=== PATIENT | male | born 1950 | race Caucasian/White ===

== ENCOUNTER 2018-02-13 15:06 | Emergency (ER) | payer MEDICARE, OTHER, SELFPAY ==
[2018-02-13 15:08] VITALS: BP 156/79; PULSE 79; PULSE 95; RESP 18; TEMP 36.4; O2SAT 95; O2SAT 97; BMI 34.3
--- NOTE | 2018-02-13 15:20 | ED.VISSUMM ---
- ER Visit Summary Date of Service: 02/13/18 Chief Complaint: Injury left thumb History of Present Illness: The patient is a 67 M who is right-hand dominant presents with injury to the distal volar radial side of the left thumb. He was using a nail gun. Apparently the wound was hard and the nail went off to the side causing injury to the left thumb. He denies paresthesia, anesthesia motor weeks. He denies problems with bleeding or bruising easily. He states he ran it under water for 5-10 minutes and then used surgical cleaning soap to clean the area. He is uncertain when his last tetanus shot was. Will contact his physician at [facility] to determine when his last shot was since he does not have access to his records through the Internet. Patient's last tetanus shot was April 28, 2015. Physical Examination: Vital signs are remarkable for slight elevation blood pressure 156/79. There is a 2 x 3 mm V-shaped laceration distal radial volar side of the left thumb. There is no subungual hematoma. Sensation and capillary refill are normal. He has full active range of motion. Test Results: None are indicated Emergency Department Course and Treatment: If patient's last tetanus shot was greater than 10 years will update otherwise clean wound Steri-Stripped and discharged home with appropriate home-going instructions Treatment Plan: Wound care and appropriate home-going instructions Disposition: Discharge to home with spouse Impression: Small laceration volar surface left thumb initial encounter This note was generated with [employer] dictation software. It may contain incorrect words, spelling, and punctuation that were not noted in review of the chart prior to signing ED Disposition - Plan for ED Patient: Disposition: Home or Assisted Living Chief Complaint: Wound Check Instructions: ED Laceration Small Superf No Sutr Referrals: Mark Shea MD [Primary Care Provider] - As Needed
--- NOTE | 2018-02-13 15:24 | ED.DCSUM_ITS ---
- ER Visit Summary Date of Service: 02/13/18 Chief Complaint: Injury left thumb History of Present Illness: The patient is a 67 M who is right-hand dominant presents with injury to the distal volar radial side of the left thumb. He was using a nail gun. Apparently the wound was hard and the nail went off to the side causing injury to the left thumb. He denies paresthesia, anesthesia motor weeks. He denies problems with bleeding or bruising easily. He states he ran it under water for 5-10 minutes and then used surgical cleaning soap to clean the area. He is uncertain when his last tetanus shot was. Will contact his physician at [facility] to determine when his last shot was since he does not have access to his records through the Internet. Patient's last tetanus shot was April 28, 2015. Physical Examination: Vital signs are remarkable for slight elevation blood pressure 156/79. There is a 2 x 3 mm V-shaped laceration distal radial volar side of the left thumb. There is no subungual hematoma. Sensation and capillary refill are normal. He has full active range of motion. Test Results: None are indicated Emergency Department Course and Treatment: If patient's last tetanus shot was greater than 10 years will update otherwise clean wound Steri-Stripped and discharged home with appropriate home-going instructions Treatment Plan: Wound care and appropriate home-going instructions Disposition: Discharge to home with spouse Impression: Small laceration volar surface left thumb initial encounter This note was generated with [employer] dictation software. It may contain incorrect words, spelling, and punctuation that were not noted in review of the chart prior to signing ED Disposition - Plan for ED Patient: Disposition: Home or Assisted Living Chief Complaint: Wound Check Instructions: ED Laceration Small Superf No Sutr Referrals: Mark Shea MD [Primary Care Provider] - As Needed
--- NOTE | 2018-02-13 15:31 | ED.RN ---
CALLED DR. THOMAS'S OFFICE, PATIENT LAST HAD TETANUS SHOT 04/28/15. INFORMATION RELAYED TO NURSE AND DR. SULLIVAN.
== END 2018-02-13 15:45 | disposition home or self-care (01) ==
PROVIDERS: Emergency Provider Emergency Medicine; Family Provider Family Medicine; PCP Family Medicine
DX: S61.012A Laceration without foreign body of left thumb without damage to nail, initial encounter (principal); W29.4XXA Contact with nail gun, initial encounter; Y93.89 Activity, other specified; Y92.9 Unspecified place or not applicable
CPT/HCPCS: 99282

== ENCOUNTER 2020-07-11 21:04 | Emergency (ER) | payer MEDICARE, OTHER, SELFPAY ==
[2020-07-11 21:05] VITALS: BP 152/71; PULSE 72; RESP 20; TEMP 36.1; O2SAT 99; BMI 34.0
--- NOTE | 2020-07-11 21:47 | CT_ITS ---
STUDY: CT BRAIN WITHOUT CONTRAST REASON FOR EXAM: Male, 69 years old. RAZA, N/V, WEAKNESS, DIZZINESS, HX HTN, CAD, STENTS RADIATION DOSAGE (If Supplied By Facility): CTDIvol = ( 44.99 ) mGy, DLP = ( 846.73 ) mGycm TECHNIQUE: Transaxial CT imaging of the brain was performed without administration of intravenous contrast material. Individualized dose optimization techniques were used for this CT. COMPARISON: No relevant priors. FINDINGS: Normal soft tissue structures. Normal calvarium. Normal size ventricles and extra-axial spaces for the patient''s age. Normal white matter tracts of the cerebral hemispheres. Normal basal ganglia and thalami. Normal brainstem. Normal cerebellum. There is no intracranial hemorrhage. There are no findings of an acute ischemic infarction. Normal visualized paranasal sinuses. CT/Brain/Head without Contrast IMPRESSION: Normal unenhanced CT scan of the brain. Electronically Signed: Corinne Vu MD at 22:51 EST Tel , Service support ,
[2020-07-11 22:23] LABS: Absolute Lymphocyte Count 0.84 X10^3/uL (0.83-4.51); Absolute Neutrophil Count 10.4 X10^3/uL (2.0-7.7); Basophil# 0.02 X10^3/uL; Basophil% 0.2 % (0-1); Eosinophil# 0.01 X10^3/uL; Eosinophils% 0.1 % (0-5); Hematocrit 42.4 % (40-54); Hemoglobin 13.7 g/dL (13.0-16.5); Lymphocyte # 0.84 X10^3/ul (4.0); Lymphocyte % 7.2 % (19-41); Mean Corp Hgb Conc 32.3 g/dL (32-36); Mean Corpuscular Hgb 29.7 pg (27.0-32.0); Mean Corpuscular Volume 91.8 fL (80-94); Mean Platelet Vol. 10.1 fl (6.2-12.0); Monocyte# 0.36 X10^3/uL; Monocyte% 3.1 % (0-10); NRBC Flagged by Analyzer 0 % (0-5); Neutrophil # 10.42 X10^3/uL (2.7-7.7); Neutrophil % 88.8 % (47-70); Platelet Count 204 K/mm3 (150-450); RBC Distribution Width CV 13.2 % (11.6-14.6); RBC Distribution Width SD 43.9 fl (35.1-43.9); Red Blood Count 4.62 M/mm3 (4.6-6.2); White Blood Count 11.7 K/mm3 (4.4-11.0)
[2020-07-11 22:25] LABS: Anion Gap 8 (5-15); BUN 14 mg/dL (7-18); Calcium,Total 9.1 mg/dL (8.5-10.1); Chloride 106 mmol/L (98-107); EST Glomerular Filtration Rate 79 mL/min (>60); Est Glom Filt Rate - Afr Amer 95 mL/min (>60); Glucose 140 mg/dL (74-106); Sodium Level 140 mmol/L (136-145)
[2020-07-11] MEDS: Acetaminophen 500 MG Tablet 1000 MG PO (22:34)
[2020-07-11] MEDS: DiphenhydrAMINE 50 MG/ML Syringe 25 MG IV (22:34)
[2020-07-11] MEDS: Ondansetron 4 MG/2 ML Vial IV (22:34)
[2020-07-11] MEDS: 0.9% Normal Saline 1,000 ML 999 ML IV (22:34)
--- NOTE | 2020-07-11 23:04 | ED.DCSUM_ITS ---
- ER Visit Summary Date of Service: 07/11/20 Chief Complaint: Headache History of Present Illness: 69-year-old male history of CAD with 2 cardiac stents, thoracic this and on Plavix and aspirin for stents. He states that today around 2:00 he got a gradual onset of frontal headache and headache with top of his head. Associated with nausea and he vomited 8 times. Denies any history of headaches. Denies any trauma. Has had no fever. He denies any numbness to his upper or lower extremities he denies any weakness or motor loss. is at home with him she has had no symptoms and no headache. Physical Examination: Older male no acute distress. Vital signs stable afebrile. Initial blood pressure 132/71. Pulse ox 90% on room air no signs hypoxia. No distress. HEENT exam unremarkable. Pupils round reactive light. Normal speech. No facial droop. Tongue midline. Moist mucous membranes. Extraocular motions intact. No trauma nose face or scalp. Neck nontender. No meningismus. No lymphadenopathy. He can easily flex and touch chin to chest. Lungs clear to auscultation bilaterally. Heart regular rhythm no murmur. Abdomen soft and nontender. Patient is moving all 4 extremities. Neurovascularly intact. Normal range of motion. Normal strength normal se nsation. Bilateral 5-5 imaging technologist strength. Dorsi plantarflexion intact. Neurologic exam normal. NIH is 0. Awake alert and oriented. Normal motor strength and sensation. Fingertip to nose within normal limits. Test Results: CAT scan of the brain without contrast showed no acute abnormality. Read by the radiologist and reviewed by me. CBC white count 11.7. Hemoglobin 13. No bands. Chemistries unremarkable normal creatinine and gap. Emergency Department Course and Treatment: She with a gradual onset of a headache today. This was not thunderclap. It does not appear to be meningitis. His exam is unremarkable. Obtain a CAT scan due to him being on Plavix. Screening labs. Patient's headache was treated with IV fluids, p.o. Tylenol, IV Benadryl and IV Zofran. Greatly improved his symptoms on repeat exam. Repeat exam patient is doing well at 11:30 PM. Headache is resolving and is now about a 3 out of 10. His neurologic exam remains normal. He is comfortable being discharged to home. Treatment Plan: Patient follow-up with his primary care physician. Return if worse. Disposition: dc Impression: Cute cephalgia uncertain etiology History of CAD with cardiac stents on Plavix This note was generated with [employer] [facility] dictation software. It may contain incorrect words, spelling, and punctuation that were not noted in review of the chart prior to signing ED Disposition - Plan for ED Patient: Disposition: Home or Assisted Living Referrals: Slade Juarez [Primary Care Provider] - 3-5 Days if not improving Additional Instructions: CAT scan and labs were unremarkable today. Tylenol and Motrin for further headache. Plenty of fluids. Follow-up with your doctor if not improving. Return emergency department if feeling a lot worse.
--- NOTE | 2020-07-11 23:45 | ED.DEP ---
ED Disposition - Plan for ED Patient: Disposition: Home or Assisted Living Referrals: Slade Juarez [Primary Care Provider] - 3-5 Days if not improving Additional Instructions: CAT scan and labs were unremarkable today. Tylenol and Motrin for further headache. Plenty of fluids. Follow-up with your doctor if not improving. Return emergency department if feeling a lot worse.
[2020-07-11 23:54] VITALS: BP 133/70; PULSE 68; RESP 16; O2SAT 98
== END 2020-07-12 00:06 | disposition home or self-care (01) ==
PROVIDERS: Emergency Provider Emergency Medicine
DX: R51.9 Headache, unspecified (principal); I25.10 Atherosclerotic heart disease of native coronary artery without angina pectoris; Z79.02 Long term (current) use of antithrombotics/antiplatelets; Z95.5 Presence of coronary angioplasty implant and graft; Z79.82 Long term (current) use of aspirin
CPT/HCPCS: 70450; 80048; 85025; 87635; 96374; 96375; 99285; J7030; A4216; J2405; U0003

== ENCOUNTER 2021-02-17 23:15 | Emergency (ER) | payer MEDICARE, OTHER, SELFPAY ==
[2021-02-17 23:15] VITALS: BP 110/80; PULSE 73; RESP 16; TEMP 36.2; O2SAT 99; BMI 34.7
--- NOTE | 2021-02-17 23:42 | EX.ED.DYSGE1 ---
HPI History of Present Illness Chief Complaint: Lower Extremity Injury Narrative Narrative: Patient presents with left lower extremity pain, it started after overusing it a few days ago, it was lateral, however now without any other injury is complaining of pain behind his left knee. He has no chest pain or shortness of breath. No fever or chills. PFSH PFSH Home Medications acetaminophen 650 mg PO BID 07/11/20 [History Last Taken Unknown] aspirin 81 mg PO DAILY@0800 07/11/20 [History Last Taken Unknown] atorvastatin 40 mg PO DAILY 07/11/20 [History Last Taken Unknown] cholecalciferol (vitamin D3) 25 mcg PO DAILY 07/11/20 [History Last Taken Unknown] fluticasone propionate 2 spray NASAL DAILY 07/11/20 [History Last Taken Unknown] gabapentin 300 mg PO TID 07/11/20 [History Last Taken Unknown] metoprolol succinate 25 mg PO DAILY 07/11/20 [History Last Taken Unknown] multivitamin 1 ea PO DAILY 07/11/20 [History Last Taken Unknown] nitroglycerin 0.4 mg SL Q5M PRN 07/11/20 [History Last Taken Unknown] meclizine 12.5 mg PO TID PRN 02/17/21 [History Last Taken Unknown] nortriptyline 10 mg PO DAILY 02/17/21 [History Last Taken Unknown] tizanidine 2 mg PO DAILY PRN 02/17/21 [History Last Taken Unknown] Allergy/AdvReac Type Severity Reaction Status Date / Time buspirone [From BuSpar] Allergy Swelling Verified 02/17/21 23:18 citalopram [From Celexa] Allergy Swelling Verified 02/17/21 23:18 codeine Allergy Unknown Verified 02/17/21 23:18 levofloxacin [From Levaquin] Allergy Unknown Verified 02/17/21 23:18 meloxicam [From Mobic] Allergy Swelling Verified 02/17/21 23:18 amoxicillin [From Augmentin] AdvReac Rash Verified 02/17/21 23:18 clavulanic acid AdvReac Rash Verified 02/17/21 23:18 [From Augmentin] Surgical History (Updated 02/17/21 @ 23:28 by Irene Calle) H/O heart artery stent Social History Smoking Status: Never smoker ROS ROS ED ROS Narrative Past medical history: Reviewed, includes hypertension, coronary artery disease Medications: Reviewed Social history: Noncontributory Review of systems: All systems negative except as indicated General: No fever Cardiovascular: No chest pain Respiratory: No shortness of breath or cough Gastrointestinal: No abdominal pain, nausea vomiting or diarrhea Musculoskeletal: Leg pain as in HPI Skin: No rash Neurological: No weakness or paresthesias Hematologic: No easy bleeding or easy bruising EXAM Physical Exam Narrative Exam Narrative: Physical exam General: Well nourished, Well developed, No Acute Distress Neck: Supple, Nontender, No lymphadenopathy Cardiovascular: Regular rate, Regular rhythm Respiratory: No distress, CTA bilaterally Abdomen: Soft, Nontender, Nondistended Back: Nontender, Normal Inspection. Negative for: CVA tenderness Extremities: Patient has tenderness over the IT band, there is also some tenderness over the left posterior thigh region mostly behind the knee. No edema. No signs of cellulitis. Skin: Normal color, No rash Neurological: Alert, Normal Strength, Normal Sensation Const Vital Signs: 02/17/21 23:15 Temperature 97.1 F L Temperature Source Temporal Pulse Rate 73 Respiratory Rate 16 Blood Pressure 110/80 Blood Pressure Mean 90 Pulse Ox 99 Oxygen Delivery Method Room Air MDM MDM MDM Narrative Medical decision making narrative: I do not have ultrasound capabilities at this hour, patient will be discharged to return tomorrow morning for an outpatient ultrasound as his protocol at this institution. Discharge Plan Triage Chief Complaint: Lower Extremity Injury ED Provider: Bright Pantoja Dx/Rx/DC Orders Clinical Impression: Acute leg pain Instructions: RICE Prescriptions: No Action multivitamin 1 EACH tablet 1 ea PO DAILY RF: 0 atorvastatin 40 MG tablet 40 mg PO DAILY RF: 0 acetaminophen 650 MG tablet extended release 650 mg PO BID RF: 0 nitroglycerin 0.4 MG tablet, sublingual 0.4 mg SL Q5M PRN (Reason: Cardiac/Chest Pain) RF: 0 gabapentin 300 MG capsule 300 mg PO TID RF: 0 aspirin 81 MG tablet,chewable 81 mg PO DAILY@0800 RF: 0 metoprolol succinate 25 MG tablet extended release 24 hr 25 mg PO DAILY RF: 0 fluticasone propionate 1 SPRAY spray,suspension 2 spray NASAL DAILY RF: 0 cholecalciferol (vitamin D3) 25 MCG tablet 25 mcg PO DAILY RF: 0 meclizine 12.5 mg Tablet 12.5 mg PO TID PRN (Reason: Dizziness) RF: 0 nortriptyline 10 mg capsule 10 mg PO DAILY RF: 0 tizanidine 2 mg Capsule 2 mg PO DAILY PRN (Reason: Muscle Spasm) RF: 0 Primary Care Provider: Slade Juarez Referrals: Slade Juarez [Primary Care Provider] - 2 Days Activity Restrictions/Additional Instructions: You should get a phone call tomorrow morning with an appointment for your ultrasound, if not to call them as instructed Disposition Disposition: Home, Self Care
== END 2021-02-18 00:11 | disposition home or self-care (01) ==
LOC: ED 02-18 00:06
PROVIDERS: Emergency Provider Emergency Medicine
DX: M79.605 Pain in left leg (principal); I25.10 Atherosclerotic heart disease of native coronary artery without angina pectoris; I10 Essential (primary) hypertension; Z79.899 Other long term (current) drug therapy
CPT/HCPCS: 99281

== ENCOUNTER → 2021-02-18 10:24 | Outpatient (CLI) | payer MEDICARE, OTHER, SELFPAY ==
[2021-02-17 23:15] VITALS: BMI 34.7
--- NOTE | 2021-02-18 10:27 | VDLE_ITS ---
Reason For Study: Pain Procedure LEFT This is a venous duplex using B-mode, color GSV is normal. flow and spectral Doppler. CFV is compressible, spontaneous, phasic, Exam performed in department. competent, and demonstrates normal A preliminary report was called and/or faxed augmentation. to Dr. Juarez. FV is compressible, spontaneous, phasic, competent and demonstrates normal augmentation. POP V is compressible, spontaneous, phasic, competent and demonstrates normal augmentation. T/P Trunk is compressible. PTV is compressible. LT PerV is compressible. VL/Venous Duplex US, Unilateral Interpretation Summary There is no evidence of left lower extremity deep vein thrombosis. Left great s aphenous vein appears patent and compressible segmentally. Ordering Physician: Bright Pantoja Referring Physician: Slade Juarez Performed By: Maria Fernanda Abbott, NIKITA, RVT
== END ==
PROVIDERS: Referring Provider Emergency Medicine; Visit Provider Emergency Medicine
DX: M79.605 Pain in left leg (principal)
CPT/HCPCS: 93971